=== PATIENT | female | born 1990 | race Caucasian/White ===

== ENCOUNTER 2021-07-17 11:27 | Inpatient (IN) | payer OTHER ==
[~2021-07-17] VITALS: Ht 172.7 cm; Wt 91.2 kg
--- NOTE | 2021-07-17 12:41 | NUR ---
COVID SWAB DONE TO BOTH NARES
--- NOTE | 2021-07-17 16:39 | PR ---
[facility] [address] [facility] [place], [place] [address] Signed Progress Notes IP Datetime Report Generated by CPN: 07/17/2021 16:39 PROGRESS NOTES: [id number] Impression: Normal Progression of Labor; Reassuring Heart Rate Plan: Continue Present Management; Augmentation Other Plans: with nipple stimulation as needed VITAL SIGNS: [id number] EXAM: [id number] Dilatation: 4.0 Effacement: 75 Station: -2 MEMBRANES: [id number] Membranes Status: Ruptured Comments: Pt is a 31 yo @ 39.1 who was admitted for PROM @ 0900 -she is progressing gradually and is in a regular, strong contraction pattern s/p nipple stimulation with breast pump -we reviewed indication for pitocin: spacing of contractions or decreasing strength/intensity -recheck cervix in 2h FETUS A: [id number] Variability: Moderate 6-25bpm Comments on Fetus A: Indeterminate baseline. Switch to [place] monitors, continue to assess FETUS B: [id number] Signing Physician: Jeffery Robles DO Copies: ~ *Electronically Signed* 07/17/21 4509 JEFFERY ROBLES DO PATIENT NAME: NORTH CARMICHAEL PROGRESS NOTE DATE OF : 88 PHYSICIAN: JEFFERY ROBLES DO RPT #: [id number] REPORT IS CONFIDENTIAL AND NOT TO BE RELEASED WITHOUT AUTHORIZATION
[2021-07-17] MEDS ORDERED: LEVOTHYROXINE112 MC1 PO (20:42)
[2021-07-17] MEDS ORDERED: PRENATAL VITAM1 EACH PO (20:42)
--- NOTE | 2021-07-18 12:14 | PR ---
[facility] [address] [place], [place] [address] Signed PP Progress Notes Datetime Report Generated by CPN: 07/18/2021 12:14 SUBJECTIVE: [id number] Pain: Within Normal Limits Nausea/Vomiting: Denies Flatus: Yes Bowel Movement: No Vital Signs: [id number] Vital Signs: Reviewed; Within Normal Limits Cardiovascular: Normal Respiratory: Normal Abdomen/Uterus: Normal Lochia: Normal Extremities: Normal Progress: Normal Exam Comments: NAD, sitting up in bed holding baby IMPRESSION/PLAN/PROCEDURES: [id number] Impression: Normal Progression Plan: Continue Present Management Procedures: Rhogam Progress Notes: 31 yo PPD#1 s/p uncomplicated -Progressing well : with improvement after consult this am, ambulating, voiding, tolerating regular diet -Hgb 12.8 from 13.6 on admission -Lochia light, pain well controlled with orals -Most significant pain is from hemorrhoid - recommended bowel care/ stool softeners prn and topical treatments -Baby blood type A positive; anticipate rhogam administration today -Reviewed thyroid labs with lab - T4 still pending. Corrected order to free T4 (run in-house) and will be added on. Anticipate DC to home tomorrow morning Signing Physician: Jeffery Robles DO Copies: *Electronically Signed* 07/18/21 1214 JEFFERY ROBLES DO PATIENT NAME: NORTH CARMICHAEL PROGRESS NOTE DATE OF : 89 PHYSICIAN: JEFFERY ROBLES DO RPT #: [id number] REPORT IS CONFIDENTIAL AND NOT TO BE RELEASED WITHOUT AUTHORIZATION [address] [address] Signed ~ *Electronically Signed* 07/18/21 1214 JEFFERY ROBLES DO PATIENT NAME: NORTH CARMICHAEL PROGRESS NOTE DATE OF : 89 PHYSICIAN: JEFFERY ROBLES DO RPT #: [id number] REPORT IS CONFIDENTIAL AND NOT TO BE RELEASED WITHOUT AUTHORIZATION
--- NOTE | 2021-07-19 07:58 | PR ---
[facility] [address] [facility] [place], [place] [address] Signed PP Progress Notes Datetime Report Generated by CPN: 07/19/2021 07:58 SUBJECTIVE: [id number] Pain: Within Normal Limits Nausea/Vomiting: Denies Flatus: Yes Bowel Movement: No Vital Signs: [id number] Vital Signs: Reviewed; Within Normal Limits Cardiovascular: Normal Respiratory: Normal Abdomen/Uterus: Normal Lochia: Normal Extremities: Normal Progress: Abnormal Exam Comments: NAD, lying in bed with baby RRR No dyspnea or retractions Abd SNTND, fundus firm at umbilicus Ext trace edema, Neg Mo's BL IMPRESSION/PLAN/PROCEDURES: [id number] Impression: Normal Progression; Difficulties Plan: Continue Present Management Procedures: Rhogam Progress Notes: 31 yo PPD#2 s/p -s/p rhogam yesterday -doing well: voiding, ambulating, tolerating regular diet. Lochia light. -requesting DC to home, outpatient appt scheduled for Wednesday 07/25. - Signing Physician: Jeffery Robles DO Copies: ~ *Electronically Signed* 07/19/21 0758 JEFFERY ROBLES DO PATIENT NAME: NORTH CARMICHAEL PROGRESS NOTE DATE OF : 89 PHYSICIAN: JEFFERY ROBLES #: [id number] REPORT IS CONFIDENTIAL AND NOT TO BE RELEASED WITHOUT AUTHORIZATION
== END 2021-07-19 09:28 | disposition home or self-care (01) | DRG 807 ==
LOC: FBCO 11:27 → FBC 12:00
PROVIDERS: ADMIT Obstetrics & Gynecology; ATTEND Obstetrics & Gynecology
PROC: 10E0XZZ Delivery of Products of Conception, External Approach (ICD-10-PCS; principal; 2021-07-17)
PROC: 3E0334Z Introduction of Serum, Toxoid and Vaccine into Peripheral Vein, Percutaneous Approach (ICD-10-PCS; 2021-07-18)
DX: O42.913 Preterm premature rupture of membranes, unspecified as to length of time between rupture and onset of labor, third trimester (principal); Z37.0 Single live birth; Z3A.39 39 weeks gestation of pregnancy; O99.284 Endocrine, nutritional and metabolic diseases complicating childbirth; E03.9 Hypothyroidism, unspecified; O26.893 Other specified pregnancy related conditions, third trimester; O43.123 Velamentous insertion of umbilical cord, third trimester; Z67.11 Type A blood, Rh negative
CPT/HCPCS: 83030; 84443; 85027; 86850; 86870; 86900; 86901; A9270; C9803; J2590; J2790; J7121; U0003